=== PATIENT | female | born 1990 | race Caucasian/White ===

== ENCOUNTER 2020-05-09 09:09 | Emergency (ER) | payer OTHER, BC ==
[~2020-05-09] VITALS: Ht 177.8 cm; Wt 72.7 kg
[~2020-05-09 09:09] MED LIST: METROGEL VAG0.75 % VA; ORTHO EVRA TD
[2020-05-09] MEDS ORDERED: PREDNISONE20 MG PO (09:24)
[2020-05-09] MEDS ORDERED: METHOCARBAMOL500 MG PO (09:28)
[2020-05-09] MEDS ORDERED: MOTRIN800 MG PO (11:01)
[2020-05-09 11:15] VITALS: BP 131/86
== END 2020-05-09 11:16 | disposition home or self-care (01) | DRG 605 ==
LOC: ED 09:09
DX: S80.01XA Contusion of right knee, initial encounter (principal); M25.461 Effusion, right knee; V89.2XXA Person injured in unspecified motor-vehicle accident, traffic, initial encounter; Y99.0 Civilian activity done for income or pay